=== PATIENT | male | born 1965 | race Caucasian/White ===

== ENCOUNTER 2018-05-24 06:22 | Day surgery (SDC) | payer OTHER, MEDICARE ==
[~2018-05-24] VITALS: Ht 167.6 cm; Wt 77.3 kg
[~2018-05-24 06:22] MED LIST: RINGERS SOLUTION,LACTATED 1,000 ML IV ONE
[2018-05-24] MEDS ORDERED: FentaNYL CITRATE-PF 100 MCG/2 ML VIAL IVP ONE (06:23)
[2018-05-24] MEDS ORDERED: RINGERS SOLUTION,LACTATED 1,000 ML IV ONE ×2 (07:00→13:02)
[2018-05-24] MEDS ORDERED: OXCA300T29 PO (07:29)
[2018-05-24] MEDS ORDERED: DOCU250C91 PO (07:29)
[2018-05-24] MEDS ORDERED: OLAN10TA3 PO (07:29)
[2018-05-24] MEDS ORDERED: PANT40TA25 PO (07:29)
[2018-05-24] MEDS ORDERED: ATEN50TA PO (07:29)
[2018-05-24] MEDS ORDERED: SIMV-260 PO (07:29)
[2018-05-24] MEDS ORDERED: MIDAZOLAM HCL 5 MG/ML VIAL ONE (08:36)
[2018-05-24 10:41] LABS: BASOPHILS % (AUTO) 0.6 % (0.0-2.0); EOSINOPHILS % (AUTO) 1.6 % (1.0-6.0); HEMATOCRIT 38.1 % (41-53); HEMOGLOBIN 12.9 g/dL (13.5-17.5); LYMPHOCYTES # (AUTO) 1.9 K/uL (1.0-4.8); LYMPHOCYTES % (AUTO) 24.7 % (22.0-44.0); MEAN CORPUSCULAR HGB CONC 33.7 G/dL (31.0-37.0); MEAN CORPUSCULAR VOLUME 89 fL (80-100); MONOCYTES # (AUTO) 0.4 K/uL (0.1-1.0); MONOCYTES % (AUTO) 5.7 % (2.0-9.0); NEUTROPHILS # (AUTO) 5.1 K/uL (1.8-7.7); NEUTROPHILS % (AUTO) 67.4 % (40.0-70.0); PLATELET COUNT (AUTO) 270 K/uL (150-450); RED BLOOD CELL COUNT(AUTO) 4.29 MIL/uL (4.50-5.90); RED CELL DISTRIBUTION WIDTH 12.9 % (11.5-14.5)
[2018-05-24 10:49] LABS: CALCIUM, TOTAL 8.3 mg/dL (8.8-10.5); CREATININE 2.23 mg/dL (0.60-1.30); POTASSIUM 4.5 mmol/L (3.5-5.1)
[2018-05-24 10:52] LABS: PROTHROMBIN TIME 10.2 SEC (9.4-11.6)
[2018-05-24 10:55] LABS: ALBUMIN 3.2 g/dL (3.4-5.0); BILIRUBIN,TOTAL 0.2 mg/dL (0.1-1.0); TOTAL PROTEIN, SERUM 6.6 g/dL (6.4-8.2)
[2018-05-24] MEDS ORDERED: SODIUM CHLORIDE 0.9% 1,000 ML IV ONE ×2 (11:02→11:15)
[2018-05-24] MEDS ORDERED: DEXAMETHASONE SOD PHOS 4 MG/ML VIAL IVP ONE (12:00)
[2018-05-24] MEDS ORDERED: ROCURONIUM BROMIDE 10 MG/ML 5 ML VIAL IVP ONE (12:00)
[2018-05-24] MEDS ORDERED: PROPOFOL 1% 20 ML VIAL IVP ONE (12:00)
[2018-05-24] MEDS ORDERED: NEOSTIGMINE METHYLSULFATE 1 MG/ML 10 ML VIAL IVP ONE (12:00)
[2018-05-24] MEDS ORDERED: LIDOCAINE/PF 2% 5 ML VIAL INJ ONE (12:00)
[2018-05-24] MEDS ORDERED: METOCLOPRAMIDE HCL 5 MG/ML 2 ML VIAL IVP ONE (12:00)
[2018-05-24] MEDS ORDERED: GLYCOPYRROLATE 0.2 MG/ML VIAL IM ONE (12:00)
[2018-05-24] MEDS ORDERED: ONDANSETRON HCL 4 MG/2 ML VIAL IVP ONE (12:00)
== END 2018-05-24 15:00 | disposition home or self-care (01) ==
LOC: SURGERY 06:22
PROVIDERS: ATTEND Dentist General Practice
DX: K05.30 Chronic periodontitis, unspecified (principal); I10 Essential (primary) hypertension; G40.909 Epilepsy, unspecified, not intractable, without status epilepticus; F84.0 Autistic disorder; E11.9 Type 2 diabetes mellitus without complications
CPT/HCPCS: 36415; 41899; 71045; 80053; 85025; 85610; 85730; J1100; J2250; J2405; J2704; J2765; J3010; J3490 ×3; J7030; J7120

== ENCOUNTER 2020-06-25 06:12 | Day surgery (SDC) | payer OTHER, MEDICARE ==
[~2020-06-25] VITALS: Ht 167.6 cm; Wt 75.9 kg
[~2020-06-25 06:12] MED LIST changes: +ATEN-72 PO; +DOCU-350 PO; +OLAN10TA3 PO; +OXCA300T57 PO; +PANT-31 PO; -RINGERS SOLUTION,LACTATED 1,000 ML IV ONE; +SIMV-260 PO
[2020-06-25] MEDS ORDERED: RINGERS SOLUTION,LACTATED 1,000 ML IV ONE ×2 (06:30→07:00)
[2020-06-25] MEDS ORDERED: AMPICILLIN SODIUM 1 GM/VIAL ONE (07:04)
[2020-06-25 07:56] LABS: COVID AG,FIA SOURCE NASOPHARYNGEAL
[2020-06-25] MEDS ORDERED: MIDAZOLAM HCL 5 MG/ML VIAL ONE ×2 (08:06→08:08)
[2020-06-25] MEDS ORDERED: KETAMINE HCL 50 MG/ML 10 ML VIAL ONE (08:10)
[2020-06-25 08:36] LABS: BASOPHILS % (AUTO) 0.7 % (0.0-2.0); EOSINOPHILS % (AUTO) 1.2 % (1.0-6.0); HEMATOCRIT 36.8 % (41-53); HEMOGLOBIN 12.4 g/dL (13.5-17.5); LYMPHOCYTES # (AUTO) 1.6 K/uL (1.0-4.8); LYMPHOCYTES % (AUTO) 20.5 % (22.0-44.0); MEAN CORPUSCULAR HEMOGLOBIN 30.6 pg (26.0-34.0); MEAN CORPUSCULAR HGB CONC 33.7 G/dL (31.0-37.0); MEAN CORPUSCULAR VOLUME 91 fL (80-100); MONOCYTES # (AUTO) 0.4 K/uL (0.1-1.0); MONOCYTES % (AUTO) 5.4 % (2.0-9.0); NEUTROPHILS # (AUTO) 5.7 K/uL (1.8-7.7); NEUTROPHILS % (AUTO) 72.2 % (40.0-70.0); PLATELET COUNT (AUTO) 215 K/uL (150-450); RED BLOOD CELL COUNT(AUTO) 4.05 MIL/uL (4.50-5.90); RED CELL DISTRIBUTION WIDTH 13.2 % (11.5-14.5)
[2020-06-25 08:43] LABS: PROTHROMBIN TIME 10.6 SEC (9.4-11.6)
[2020-06-25 08:46] LABS: CALCIUM, TOTAL 8.2 mg/dL (8.8-10.5); POTASSIUM 4.8 mmol/L (3.5-5.1)
[2020-06-25 08:52] LABS: ALBUMIN 3.6 g/dL (3.4-5.0); BILIRUBIN,TOTAL 0.1 mg/dL (0.1-1.0)
[2020-06-25 09:30] LABS: PROSTATE SPECIFIC ANTIGEN 1.61 ng/mL (0.00-4.00)
== END 2020-06-25 10:20 | disposition home or self-care (01) ==
LOC: SURGERY 06:12
PROVIDERS: ATTEND Dentist General Practice
DX: K02.9 Dental caries, unspecified (principal); K05.30 Chronic periodontitis, unspecified; I10 Essential (primary) hypertension; E78.5 Hyperlipidemia, unspecified; R62.50 Unspecified lack of expected normal physiological development in childhood; E66.3 Overweight; G40.909 Epilepsy, unspecified, not intractable, without status epilepticus; F84.0 Autistic disorder; Z79.899 Other long term (current) drug therapy
CPT/HCPCS: 36415; 41899; 71045; 80053; 84153; 85025; 85610; 85730; 87426; 93005; C9803; J0290; J2250; J7120; J3490

== ENCOUNTER 2021-09-30 05:45 | Day surgery (SDC) | payer OTHER, MEDICARE ==
[~2021-09-30] VITALS: Ht 170.2 cm; Wt 78.6 kg
[~2021-09-30 05:45] MED LIST changes: -OLAN10TA3 PO; +OLAN10TA74 PO
[2021-09-30] MEDS ORDERED: DEXAMETHASONE SOD PHOS 4 MG/ML VIAL IVP ONE (05:46)
[2021-09-30] MEDS ORDERED: PROPOFOL 1% 20 ML VIAL IVP ONE (05:46)
[2021-09-30] MEDS ORDERED: KETAMINE HCL 50 MG/ML 10 ML VIAL IVP ONE (05:46)
[2021-09-30] MEDS ORDERED: MIDAZOLAM HCL 5 MG/ML VIAL IVP ONE (05:46)
[2021-09-30] MEDS ORDERED: LIDOCAINE/PF 2% 5 ML VIAL IM ONE (05:46)
[2021-09-30] MEDS ORDERED: ROCURONIUM BROMIDE 10 MG/ML 5 ML VIAL IVP ONE (05:46)
[2021-09-30] MEDS ORDERED: ONDANSETRON HCL 4 MG/2 ML VIAL IVP ONE (05:46)
[2021-09-30] MEDS ORDERED: SUGAMMADEX SODIUM 200 MG/2 ML VIAL IVP ONE (05:46)
[2021-09-30] MEDS ORDERED: AMPICILLIN SODIUM 2 GM/NS 100 ML IV ONE (06:48)
[2021-09-30 06:50] LABS: COVID AG,FIA SOURCE NASAL SWAB
[2021-09-30] MEDS ORDERED: RINGERS SOLUTION,LACTATED 1,000 ML IV ONE (07:00)
[2021-09-30] MEDS ORDERED: MIDAZOLAM HCL 5 MG/ML VIAL ONE (07:57)
[2021-09-30] MEDS ORDERED: FentaNYL CITRATE PF 100 MCG/2 ML VIAL IVP PRN (08:30)
[2021-09-30 08:38] LABS: BASOPHILS % (AUTO) 0.5 % (0.0-2.0); EOSINOPHILS % (AUTO) 1.8 % (1.0-6.0); HEMOGLOBIN 12.1 g/dL (13.5-17.5); LYMPHOCYTES # (AUTO) 1.4 K/uL (1.0-4.8); LYMPHOCYTES % (AUTO) 20.1 % (22.0-44.0); MEAN CORPUSCULAR HEMOGLOBIN 30.1 pg (26.0-34.0); MEAN CORPUSCULAR HGB CONC 33.5 G/dL (31.0-37.0); MEAN CORPUSCULAR VOLUME 90 fL (80-100); MONOCYTES # (AUTO) 0.5 K/uL (0.1-1.0); MONOCYTES % (AUTO) 7.4 % (2.0-9.0); NEUTROPHILS # (AUTO) 4.9 K/uL (1.8-7.7); NEUTROPHILS % (AUTO) 70.2 % (40.0-70.0); PLATELET COUNT (AUTO) 204 K/uL (150-450); RED BLOOD CELL COUNT(AUTO) 4.01 MIL/uL (4.50-5.90); RED CELL DISTRIBUTION WIDTH 13.6 % (11.5-14.5)
[2021-09-30 08:44] LABS: CALCIUM, TOTAL 8.2 mg/dL (8.8-10.5); CREATININE 3.01 mg/dL (0.60-1.30); POTASSIUM 5.2 mmol/L (3.5-5.1)
[2021-09-30 09:03] LABS: BILIRUBIN,TOTAL 0.3 mg/dL (0.1-1.0); TOTAL PROTEIN, SERUM 6.7 g/dL (6.4-8.2)
[2021-09-30 09:23] LABS: ALBUMIN 3.4 g/dL (3.4-5.0)
[2021-09-30 09:39] LABS: PROTHROMBIN TIME 10.3 SEC (9.4-11.6)
[2021-09-30 09:50] LABS: CHOL/HDL RATIO 3.4 (4.2-7.3)
[2021-09-30 09:51] LABS: PROSTATE SPECIFIC ANTIGEN 1.64 ng/mL (0.00-4.00); THYROID STIMULATING HORMONE 1.93 uIU/mL (0.36-3.74)
[2021-09-30] MEDS ORDERED: OXYGEN THERAPY IH SCH (20:00)
== END 2021-09-30 11:10 | disposition home or self-care (01) ==
LOC: SURGERY 05:45
PROVIDERS: ATTEND Dentist General Practice
DX: K05.30 Chronic periodontitis, unspecified (principal); I10 Essential (primary) hypertension; E78.5 Hyperlipidemia, unspecified; K02.9 Dental caries, unspecified; K03.6 Deposits [accretions] on teeth; G40.909 Epilepsy, unspecified, not intractable, without status epilepticus; I12.9 Hypertensive chronic kidney disease with stage 1 through stage 4 chronic kidney disease, or unspecified chronic kidney disease; N18.9 Chronic kidney disease, unspecified; K21.9 Gastro-esophageal reflux disease without esophagitis; Z79.899 Other long term (current) drug therapy; Z98.890 Other specified postprocedural states; E87.5 Hyperkalemia; R31.9 Hematuria, unspecified
CPT/HCPCS: 36415; 41899; 71045; 80053; 80061; 84153; 84443; 85025; 85610; 85730; 87426; 93005; C9803; J0290; J1100; J2250; J2405; J2704; J3490 ×3; Q9967